=== PATIENT | female | born 1995 | race Caucasian/White ===

== ENCOUNTER → 2017-03-11 | Emergency (ER) | payer OTHER ==
[~2017-03-11] MED LIST: LEVOFLOXACIN 750 MG IVPB 150 ML IVPB ONE; ONDANSETRON 4 MG/2 ML VIAL ONE; SODIUM CHLORIDE 1,000 ML IV STA; morphine CARPU-JECT 4 MG/1 ML DISP.SYRIN IVPUSH ONE; morphine CARPU-JECT 4 MG/1 ML DISP.SYRIN ONE
[2017-03-11 01:24] VITALS: TEMP 98.5; BMI 25.2
--- NOTE | 2017-03-11 01:28 | PDOC ---
History of Present Illness - General Stated Complaint: ABD PAIN Time Seen by Provider: 03/11/17 00:59 - History of Present Illness Initial Comments: 03/11/17 01:21 Patient is a 21 year old female with no PMH who presents with right flank pain. The patient reports onset of sharp right sided back pain with radiation into her right flank and right abdomen earlier this evening. She states that the pain is 8/10 and sharp with intermittent spikes in severity and has been getting increasingly severe prompting her visit to the ED today. She reports some nausea and 3 episodes of vomiting, but denies any pain on urination or changes with bowel movements. She does endorse some increased urgency and frequency in urination. She states that her LMP was 1 month ago and denies any current vaginal bleeding or discharge. She states that she is sexually active with last intercourse many months ago. She denies any fevers, chills, chest pain, or SOB. Past History - Past Medical History Allergies/Adverse Reactions: Allergies Allergy/AdvReac Type Severity Reaction Status Date / Time No Known Allergies Allergy Verified 12/23/13 11:28 Home Medications: Ambulatory Orders No Home Medications 0 dose .ROUTE UTDICT 07/17/12 Levofloxacin [Levaquin] 750 mg PO DAILY #4 tab 03/11/17 Suicide Attempt (Hx): No - Psycho/Social/Smoking Cessation Hx Anxiety: No Suicidal Ideation: No Smoking Status: No Smoking History: Never smoked Number of Cigarettes Smoked Daily: 0 Review of Systems - Review of Systems Constitutional: No: Chills, Fever HEENTM: No: Recent change in vision Respiratory: No: Cough, Shortness of Breath Cardiac (ROS): No: Chest Pain, Lightheadedness, Palpitations ABD/GI: Yes: Nausea, Vomiting. No: Constipated, Diarrhea, Rectal Bleeding, Tarry Stools : Yes: Flank Pain, Urgency. No: Burning, Hematuria Musculoskeletal: Yes: Back Pain Integumentary: No: Rash Neurological: No: Headache, Numbness, Tingling, Weakness *Physical Exam - Physical Exam Comments: 03/11/17 01:32 General Appearance: Nourished, in Mild Distress due to pain HEENT: No Pharyngeal Erythema, Tonsillar Exudate, Tonsillar Erythema Respiratory/Chest: Lungs Clear, Normal Breath Sounds. No Crackles, Rales, Rhonchi, Wheezing Cardiovascular: Regular Rhythm, Regular Rate. No Murmur, Gallop/S3, Gallop/S4 Gastrointestinal/Abdominal: Normal Bowel Sounds, Soft, Tenderness in right flank and back with deep palpation of the URQ. No Guarding, Rebound Musculoskeletal: Exquisite right CVA tenderness. No left CVA tenderness Extremity: Normal Capillary Refill Integumentary: Normal Color, Dry, Warm Neurologic: Fully Oriented, Alert, Normal Mood/Affect, Normal Response ED Treatment Course - LABORATORY CBC & Chemistry Diagram: 03/11/17 01:55 03/11/17 01:55 Medical Decision Making - Medical Decision Making 03/11/17 01:37 Patient is a 21 year old female with no PMH who presents with right sided back and flank pain. Differential includes but is not limit to: Pyelonephritis, Nephrolethiasis, UTI, Cholecystitis, Ectopic . We will obtain a cbc, cmp, lipase to evaluate for any metabolic abnormalities. We will obtain a UA and Urine preg to evaluate for pyelonephritis, and nephrolethiasis as well as any related causes of her symptoms. If urine preg is negative, we will consider a CT abdomen to evaluate for pathology. Given her presentation and physical exam, her symptoms are most consistent with nephrolethiasis or pyelonephritis. We will treat with fluids and pain management while awaiting lab results. 03/11/17 04:04 CBC demonstrates an elevated WBC to 14.1 and UA demonstrates 3+ leuk esterase with 400+ WBC concerning for a UTI. Given her lab results, history, and physical examination, her symptoms are likely due to pyelonephritis. We will obtain a CT abdomen to evaluate for any nephrolethiasis or other abdominal pathology. We will also give her a dose of IV levofloxacin here in the ED. 03/11/17 05:20 CT abdomen demonstrates findings concerning for pyelonephritis without stones or hydronephrosis as preliminarily read by the investigation specialist radiologist. The patient 's symptoms are likely due to pyelonephritis. The patient has tolerated a PO challenge here in the ED. We discussed the results with the patient and feel comfortable discharging the patient home. The patient is agreeable to the plan. *DC/Admit/Observation/Transfer Diagnosis at time of Disposition: Pyelonephritis - Discharge Dispostion Disposition: HOME Condition at time of disposition: Improved Admit: No - Prescriptions Prescriptions: Levofloxacin [Levaquin] 750 mg PO DAILY #4 tab - Referrals Referrals: Rima Keating MD [Primary Care Provider] - - Patient Instructions Printed Discharge Instructions: DI for Kidney Infection Additional Instructions: Please return to the ER if you experience concerning or worsening symptoms including fevers or chills. We have prescribed Levaquin to treat your Kidney infection. You have received your first dose here in the ER. Please take once a day for the next 4 days to complete your treatment. Please follow up with your primary care provider to discuss your ER visit. - Attestations Physician Attestion: 03/11/17 05:12 I, Dr. Oneal Fajardo, attest that this document has been prepared under my direction and personally reviewed by me in its entirety. I further attest, that it accurately reflects all work, treatment, procedures and medical decision -making performed by me.
[2017-03-11 02:05] LABS: BASOPHIL 0.5 % (0-2.0); EOSINOPHIL 0.2 % (0-4.5); MCH 27.2 pg (25.7-33.7); MCHC 32.3 g/dl (32.0-36.0); MEAN CELL VOLUME 84.2 fl (80-96); MEAN PLT VOLUME 7.7 fl (7.5-11.1); NEUTROPHILS 82.1 % (42.8-82.8); PLATELET COUNT 325 K/MM3 (134-434); RDW 14.5 % (11.6-15.6); WHITE BLOOD COUNT 14.3 K/mm3 (4.0-10.0)
--- NOTE | 2017-03-11 02:08 | PDOC ---
Attending Attestation - Resident Resident Name: Oneal Fajardo - ED Attending Attestation I have performed the following: I have examined & evaluated the patient, The case was reviewed & discussed with the resident, I agree w/resident's findings & plan, Exceptions are as noted - HPI HPI: 03/11/17 02:06 Agree with the resident's HPI as documented in the electronic medical record. - Physicial Exam PE: 03/11/17 02:07 Agree with the resident's physical examination as documented in the electronic medical record. - Medical Decision Making 03/11/17 02:07 21-year-old female with no significant past medical history presents to the emergency Department with complaints of right upper quadrant and right flank pain with nausea and vomiting. Differential diagnosis includes but is not limited to: Cholelithiasis, cholecystitis, UTI, pyelonephritis, pancreatitis, electrolyte abnormality, dehydration, toxic/metabolic derangement. Plan: 1. Labs 2. Urine analysis 3. Urine 4. IV fluids for hydration 5. Pain management 6. Observe and reevaluate
[2017-03-11 02:39] LABS: URINE APPEARANCE CLOUDY; URINE BILIRUBIN NEGATIVE (NEGATIVE); URINE BLOOD 2+ (NEGATIVE); URINE COLOR YELLOW; URINE GLUCOSE (UA) NEGATIVE (NEGATIVE); URINE KETONE NEGATIVE (NEGATIVE); URINE NITRITE NEGATIVE (NEGATIVE); URINE UROBILINOGEN NEGATIVE mg/dL (0.2-1.0)
[2017-03-11 02:41] LABS: URINE LEUK ESTERASE 3+ (NEGATIVE); URINE PROTEIN 2+ (NEGATIVE)
[2017-03-11 02:47] LABS: ALBUMIN 3.8 g/dl (3.4-5.0); ALK PHOS 63 U/L (45-117); ANION GAP 10 (8-16); BILIRUBIN,TOTAL 0.3 mg/dL (0.2-1.0); CALCIUM 9.1 mg/dL (8.5-10.1); CO2 26 mmol/L (21-32); CREATININE 0.6 mg/dL (0.55-1.02); GLUCOSE,RANDOM 90 mg/dL (74-106); SGOT/AST 15 U/L (15-37); SGPT/ALT 19 U/L (12-78); TOT PROT 6.8 g/dl (6.4-8.2)
[2017-03-11 02:57] LABS: URINE BACTERIA RARE /hpf (NONE SEEN); URINE MUCUS FEW; URINE RBC 46 /hpf (0-3); URINE WBC 492 /hpf (3-5)
[2017-03-11 05:32] VITALS: BP 131/68; PULSE 89
== END | disposition home or self-care (01) ==
LOC: JER 00:48
PROC: 3E03329 Introduction of Other Anti-infective into Peripheral Vein, Percutaneous Approach (ICD-10-PCS; principal; 2017-03-11)
PROC: 3E033GC Introduction of Other Therapeutic Substance into Peripheral Vein, Percutaneous Approach (ICD-10-PCS; 2017-03-11)
PROC: 3E033NZ Introduction of Analgesics, Hypnotics, Sedatives into Peripheral Vein, Percutaneous Approach (ICD-10-PCS; 2017-03-11)
DX: N12 Tubulo-interstitial nephritis, not specified as acute or chronic (principal)
CPT/HCPCS: 36415; 74176-TC; 80053; 81003; 81015; 83690; 84703; 85025; 96365; 96375; 99282-25

== ENCOUNTER 2020-03-21 13:31 | Emergency (ER) | payer OTHER ==
[2020-03-21] MEDS ORDERED: ACETAMINOPHEN 1000 MG/100 ML VIAL (NON FORMULARY) IVPB ONE (13:39)
[2020-03-21] MEDS ORDERED: METOCLOPRAMIDE HCL INJECTION 10 MG/2 ML VIAL IVPUSH ONE (13:39)
--- NOTE | 2020-03-21 13:39 | PDOC ---
Rapid Medical Evaluation Time Seen by Provider: 03/21/20 13:37 Medical Evaluation: Allergies Allergy/AdvReac Type Severity Reaction Status Date / Time No Known Allergies Allergy Verified 12/23/13 11:28 03/21/20 13:37 I have performed a brief in-person evaluation of this patient. CC: headache since awaking. +foodstuff vomitus earlier today; h/o vertigo PE: Neuro grossly normal. Gait steady. Nasal congestion. Room spinning dizzy with leaning forward. Orders: urine, NS, reglan, benadryl, toradol Patient will proceed to ED for further evaluation. Discharge Disposition - Diagnosis Headache - Referrals - Patient Instructions - Post Discharge Activity
[2020-03-21] MEDS ORDERED: SODIUM CHLORIDE 1,000 ML IV STA (13:40)
[2020-03-21 13:41] VITALS: TEMP 98.8; BMI 25.4
[2020-03-21] MEDS ORDERED: METOCLOPRAMIDE HCL INJECTION 10 MG/2 ML VIAL ONE (14:46)
[2020-03-21] MEDS ORDERED: ACETAMINOPHEN INJECTION 100 ML IVPB ONE (14:47)
[2020-03-21] MEDS ORDERED: diazePAM CARPU-JECT 10 MG/2 ML DISP.SYRIN IVPUSH ONE (15:48)
[2020-03-21] MEDS ORDERED: diazePAM CARPU-JECT 10 MG/2 ML DISP.SYRIN ONE (15:51)
[2020-03-21 15:55] LABS: BASO % 0.4 % (0-2.0); EOS % 1.1 % (0-4.5); HEMATOCRIT 41.6 % (32.4-45.2); HEMOGLOBIN 13.5 GM/dL (10.7-15.3); LYMPH % 17.3 % (8-40); MCH 27.9 pg (25.7-33.7); MCHC 32.5 g/dl (32.0-36.0); MEAN CELL VOLUME 85.8 fl (80-96); MEAN PLT VOLUME 7.8 fl (7.5-11.1); NEUT % 75.2 % (42.8-82.8); PLATELET COUNT 344 K/MM3 (134-434); RBC 4.85 M/mm3 (3.60-5.2); RDW 14.7 % (11.6-15.6)
[2020-03-21 16:26] LABS: ALBUMIN 4.5 g/dl (3.4-5.0); BILIRUBIN,TOTAL 0.6 mg/dL (0.2-1); BLOOD UREA NITROGEN 7.6 mg/dL (7-18); CALCIUM 9.7 mg/dL (8.5-10.1); CREATININE 0.7 mg/dL (0.55-1.3); POTASSIUM 4.3 mmol/L (3.5-5.1); TOT PROT 7.9 g/dl (6.4-8.2)
--- NOTE | 2020-03-21 16:45 | PDOC ---
History of Present Illness - General Chief Complaint: Headache Stated Complaint: VERTIGO Time Seen by Provider: 03/21/20 13:37 - History of Present Illness Initial Comments: 03/21/20 16:41 24-year-old female with a past medical history of anxiety presents for evaluation of intermittent vomiting and one episode of diarrhea over the last 3 days without systemic symptoms. Past History - Medical History Allergies/Adverse Reactions: Allergies Allergy/AdvReac Type Severity Reaction Status Date / Time No Known Allergies Allergy Verified 12/23/13 11:28 Home Medications: Ambulatory Orders No Home Medications 0 dose .ROUTE UTDICT 07/17/12 levoFLOXacin [Levaquin] 750 mg PO DAILY #4 tab 03/11/17 Anemia: No Asthma: No Cancer: No Cardiac Disorders: No CVA: No COPD: No DVT: No Dementia: No Diabetes: No Dialysis: No GI Disorders: No Disorders: No HTN: No Hypercholesterolemia: No Kidney Stones: No Liver Disease: No Psychiatric Problems: No Seizures: No Thyroid Disease: No Lung CA: No - Reproductive History Is Patient Now?: No - Immunization History Immunization Up to Date: No - Psycho-Social/Smoking History Smoking Status: No Smoking History: Current some day smoker Have you smoked in the past 12 months: No Number of Cigarettes Smoked Daily: 0 Information on smoking cessation initiated: No - Substance Abuse Hx (Audit-C & DAST Scrn) How often the patient has a drink containing alcohol: Never Score: In Men: 4 or > Positive; In Women: 3 or > Positive: 0 Screen Result (Pos requires Nsg. Audit-10AR): Negative In the last yr the pt used illegal drug/Rx for NonMed reason: No Score: Yes response is considered Positive: 0 Screen Result (Positive result requires Nsg. DAST-10): Negative Review of Systems - Review of Systems Constitutional: No: Chills, Fever, Malaise, Night Sweats ABD/GI: Yes: Diarrhea, Nausea, Vomiting. No: Constipated Neurological: Yes: Headache *Physical Exam - Vital Signs Last Vital Signs Temp Pulse Resp BP Pulse Ox 98.8 F 82 18 128/68 66 L 03/21/20 13:37 03/21/20 13:37 03/21/20 13:37 03/21/20 13:37 03/21/20 13:37 - Physical Exam 03/21/20 16:42 GENERAL: The patient is awake, alert, and fully oriented, in no acute distress. HEAD: Normal with no signs of trauma. EYES: sclera anicteric, conjunctiva clear. ENT: Ears normal tympanic membranes normal oropharynx clear uvula midline NECK: Normal range of motion LUNGS: Breath sounds equal, clear to auscultation bilaterally. No wheezes, and no crackles. HEART: S1 and S2 without murmur, rub or gallop. ABDOMEN: Soft, nontender, normoactive bowel sounds. No guarding, no rebound. No masses. EXTREMITIES: Normal range of motion, no edema. No clubbing or cyanosis. No cords, erythema, or tenderness. NEUROLOGICAL: Cranial nerves II through XII grossly intact. PSYCH: Normal mood, normal affect. SKIN: Warm, Dry, normal turgor, no rashes or lesions noted. ED Treatment Course - LABORATORY CBC & Chemistry Diagram: 03/21/20 15:00 03/21/20 15:00 - ADDITIONAL ORDERS Additional order review: Laboratory Results 03/21/20 03/21/20 15:00 15:00 Sodium 141 Potassium 4.3 Chloride 104 Carbon Dioxide 24 Anion Gap 13 BUN 7.6 Creatinine 0.7 Est GFR (CKD-EPI)AfAm 142.54 Est GFR (CKD-EPI)NonAf 122.98 Random Glucose 73 L Calcium 9.7 Total Bilirubin 0.6 AST 22 ALT 22 Alkaline Phosphatase 93 Total Protein 7.9 Albumin 4.5 Lipase 98 Serum , Qual Negative 03/21/20 15:00 RBC 4.85 MCV 85.8 MCHC 32.5 RDW 14.7 MPV 7.8 Neutrophils % 75.2 Lymphocytes % 17.3 D Monocytes % 6.0 Eosinophils % 1.1 D Basophils % 0.4 - Medications Given in the ED: ED Medications Discontinued Medications Generic Name Dose Route Start Last Admin Trade Name Freq PRN Reason Stop Dose Admin Acetaminophen 1,000 mg 03/21/20 13:39 03/21/20 15:28 Ofirmev Injection - IVPB 03/21/20 13:40 1,000 mg ONCE ONE Administration Diazepam 2.5 mg 03/21/20 15:48 03/21/20 15:58 Valium Injection - IVPUSH 03/21/20 15:49 2.5 mg ONCE ONE Administration Diphenhydramine HCl 50 mg 03/21/20 13:39 03/21/20 15:28 Benadryl Injection - IVPUSH 03/21/20 13:40 50 mg ONCE ONE Administration Sodium Chloride 1,000 mls @ 1,000 mls/hr 03/21/20 13:40 03/21/20 15:28 Normal Saline - IV 03/21/20 14:39 1,000 mls/hr ASDIR STA Administration Metoclopramide HCl 10 mg 03/21/20 13:39 03/21/20 15:28 Reglan Injection - IVPUSH 03/21/20 13:40 10 mg ONCE ONE Administration Medical Decision Making - Medical Decision Making 03/21/20 16:42 Patient was agitated after receiving some of the Reglan. Benadryl was given as well as 2.5 of Valium. Her symptoms resolved blood work was reviewed patient is feeling better she may be safely discharged to follow-up with her primary care physician. I have reviewed the pathophysiology with the patient. They are in agreement with the treatment plan all questions were answered to their satisfaction. Understanding for follow-up without fail was also conveyed to the patient. Again they are in agreement. Discharge - Discharge Information Problems reviewed: Yes Clinical Impression/Diagnosis: Headache Condition: Improved Disposition: HOME - Admission No - Follow up/Referral Referrals: Rima Keating MD [Primary Care Provider] - - Patient Discharge Instructions Additional Instructions: Maintain hydration with plenty of water and clear fluids. Return to the emergency room for worsening symptoms. Without fail follow-up with your primary care physician in 1 to 2 days for further evaluation and treatment options and return to the emergency room should symptoms worsen. - Post Discharge Activity
[2020-03-21 16:57] VITALS: BP 103/45; PULSE 74
== END 2020-03-21 16:57 | disposition home or self-care (01) ==
LOC: JER 13:31
PROC: 3E0333Z Introduction of Anti-inflammatory into Peripheral Vein, Percutaneous Approach (ICD-10-PCS; principal; 2020-03-21)
PROC: 3E033GC Introduction of Other Therapeutic Substance into Peripheral Vein, Percutaneous Approach (ICD-10-PCS; 2020-03-21)
PROC: 3E0337Z Introduction of Electrolytic and Water Balance Substance into Peripheral Vein, Percutaneous Approach (ICD-10-PCS; 2020-03-21)
DX: R51 Headache (principal)
CPT/HCPCS: 36415; 80053; 83690; 84703; 85025; 99284-25; J0131

== ENCOUNTER 2023-04-03 12:48 | Emergency (ER) | payer OTHER ==
[2023-04-03 13:09] VITALS: BP 126/83; PULSE 86; RESP 18; TEMP 98.6; BMI 32.9
== END 2023-04-03 16:45 | disposition home or self-care (01) ==
LOC: JER 12:48
DX: R55 Syncope and collapse (principal); R11.0 Nausea; R41.9 Unspecified symptoms and signs involving cognitive functions and awareness; R51.9 Headache, unspecified; R42 Dizziness and giddiness
CPT/HCPCS: 82962; 84703; 93005; 93010; 99284-25

== ENCOUNTER 2023-09-17 08:32 | Day surgery (SDC) | payer OTHER ==
[2023-09-17] MEDS ORDERED: ACETAMINOPHEN INJECTION 100 ML IVPB ONE (09:36)
[2023-09-17] MEDS ORDERED: FAMOTIDINE 20 MG/50 ML IVPB 20 MG/50 ML MG IVPB ONE (09:36)
[2023-09-17] MEDS ORDERED: ONDANSETRON 4 MG/2 ML VIAL ONE ×3 (09:37→16:21)
[2023-09-17] MEDS: ACETAMINOPHEN 1000 MG/100 ML BAG IVPB ONE (09:57)
[2023-09-17] MEDS: LACTATED RINGERS SOLUTION 1,000 ML/1,000 ML INFUS.BAG IV STA ×2 (09:58→11:30)
[2023-09-17] MEDS: FAMOTIDINE 20 MG/50 ML IVPB 20 MG/50 ML MG IVPB ONE (09:58)
[2023-09-17] MEDS: ONDANSETRON 4 MG/2 ML VIAL IVPUSH ONE ×2 (09:58→11:31)
[2023-09-17 10:06] LABS: BASO % 0.3 % (0-2.0); EOS % 0.3 % (0-4.5); HEMATOCRIT 38.9 % (32.4-45.2); LYMPH % 12.5 % (8-40); MCH 27.8 pg (25.7-33.7); MCHC 33.4 g/dl (32.0-36.0); MEAN CELL VOLUME 83.3 fl (80-96); MEAN PLT VOLUME 7.3 fl (7.5-11.1); NEUT % 82.9 % (42.8-82.8); PLATELET COUNT 333 10^3/uL (134-434); RBC 4.67 M/mm3 (3.60-5.2); WHITE BLOOD COUNT 13.9 K/mm3 (4.0-10.0)
[2023-09-17 10:13] LABS: INR 1.07 (0.83-1.09); PROTHROMBIN TIME (PATIENT) 12.4 SEC (9.7-13.0)
[2023-09-17 10:25] LABS: POTASSIUM 4.4 mmol/L (3.5-5.1)
[2023-09-17 10:27] LABS: CALCIUM 9.8 mg/dL (8.5-10.1)
[2023-09-17 10:28] LABS: MAGNESIUM 1.8 mg/dL (1.8-2.4)
[2023-09-17 10:31] LABS: CREATININE 0.6 mg/dL (0.55-1.3)
[2023-09-17 10:32] LABS: BILIRUBIN,TOTAL 0.3 mg/dL (0.2-1); TOT PROT 7.1 g/dl (6.4-8.2)
[2023-09-17] MEDS ORDERED: morphine SULFATE 4 MG/ML VIAL ONE (11:21)
[2023-09-17] MEDS: morphine CARPU-JECT 4 MG/1 ML DISP.SYRIN IVPUSH ONE (11:30)
[2023-09-17 11:44] LABS: URINE APPEARANCE CLEAR; URINE BILIRUBIN NEGATIVE (NEGATIVE); URINE COLOR YELLOW; URINE GLUCOSE (UA) NEGATIVE (NEGATIVE); URINE KETONE NEGATIVE (NEGATIVE); URINE LEUK ESTERASE NEGATIVE (NEGATIVE); URINE NITRITE NEGATIVE (NEGATIVE); URINE PROTEIN NEGATIVE (NEGATIVE); URINE UROBILINOGEN 0.2 mg/dL (0.2-1.0)
[2023-09-17] MEDS ORDERED: PIPERACILLIN/TAZOB 3.375 GM 3.375 GM/50 ML BAG IVPB ONE (13:15)
[2023-09-17] MEDS ORDERED: METOCLOPRAMIDE HCL INJECTION 10 MG/2 ML VIAL ONE (13:54)
[2023-09-17] MEDS: METOCLOPRAMIDE HCL INJECTION 10 MG/2 ML VIAL IVPUSH ONE (14:05)
[2023-09-17] MEDS: PIPERACILLIN/TAZOB 3.375 GM 3.375 GM in DEXTROSE 5%-WATER - 50 ML IVPB ONE (14:05)
[2023-09-17] MEDS: DEXTROSE 5%-LACTATED RINGERS 1,000 ML IV SCH (14:06)
[2023-09-17] MEDS ORDERED: ACETAMINOPHEN 1000 MG/100 ML BAG IVPB PRN (14:56)
[2023-09-17] MEDS ORDERED: ONDANSETRON 4 MG/2 ML VIAL IVPUSH PRN ×2 (14:56→15:41)
[2023-09-17] MEDS ORDERED: BUPIVACAINE HCL/PF 0.25% (2.5MG/ML) 10 ML VIAL ONE (15:09)
[2023-09-17] MEDS ORDERED: PROMETHAZINE HCL 25 MG/1 ML VIAL IVPB PRN ×2 (15:41→17:56)
[2023-09-17] MEDS ORDERED: MIDAZOLAM HCL 2 MG/2 ML SINGLE DOSE VIAL ONE (15:45)
[2023-09-17] MEDS ORDERED: PROPOFOL 20 ML ONE ×2 (15:45→17:03)
[2023-09-17] MEDS ORDERED: LACTATED RINGERS SOLUTION 1,000 ML IV SCH (15:45)
[2023-09-17] MEDS ORDERED: ROCURONIUM BROMIDE 50 MG/5 ML SYRINGE ONE (15:45)
[2023-09-17] MEDS ORDERED: SODIUM CHLORIDE 0.9% P/F 10 ML VIAL IJ ONE (15:51)
[2023-09-17] MEDS ORDERED: LIDOCAINE HCL/PF 2% SDV 5ML VIAL ONE (15:51)
[2023-09-17] MEDS ORDERED: ceFAZolin SODIUM 1 GM VIAL ONE (15:51)
[2023-09-17] MEDS ORDERED: HEPARIN NA (PORCINE) 5,000 UNITS/ML 1ML VIAL ONE (16:10)
[2023-09-17] MEDS ORDERED: cefOXitin SODIUM 2 GM VIAL (RESTRICTED TO ID) IVPB ONE (16:10)
[2023-09-17] MEDS: ceFAZolin SODIUM 1 GM VIAL IVPB ONE (16:14)
[2023-09-17] MEDS ORDERED: DEXAMETHASONE SOD PHOSPHATE 4 MG/1 ML VIAL ONE (16:21)
[2023-09-17] MEDS: BUPIVACAINE HCL/PF 0.25% (2.5MG/ML) 10 ML VIAL IJ ONE ×2 (16:27)
[2023-09-17] MEDS ORDERED: SUGAMMADEX SODIUM 200 MG/2 ML VIAL ONE (16:46)
[2023-09-17] MEDS ORDERED: KETOROLAC TROMETHAMINE 30 MG/1 ML VIAL ONE (17:26)
[2023-09-17] MEDS ORDERED: oxyCODONE HCL 5 MG TABLET PO PRN (17:56)
[2023-09-17] MEDS ORDERED: AMPICILLIN NA/SULBACTAM NA 3 GM in DEXTROSE 5%-WATER 100 ML IVPB SCH (18:00)
[2023-09-17] MEDS: LACTATED RINGERS SOLUTION 1,000 ML IV SCH (20:10)
[2023-09-17 21:00] VITALS: BMI 33.3
[2023-09-17] MEDS: QUEtiapine FUMARATE 25 MG TABLET PO SCH (22:12)
[2023-09-17] MEDS: ACETAMINOPHEN 1000 MG/100 ML BAG IVPB SCH (23:44)
[2023-09-18 10:00] LABS: HEMATOCRIT 35.4 % (32.4-45.2); HEMOGLOBIN 11.7 GM/dL (10.7-15.3); MCH 27.6 pg (25.7-33.7); MEAN CELL VOLUME 83.7 fl (80-96); MEAN PLT VOLUME 7.6 fl (7.5-11.1); PLATELET COUNT 364 10^3/uL (134-434); RBC 4.23 M/mm3 (3.60-5.2); RDW 16.3 % (11.6-15.6); WHITE BLOOD COUNT 12.3 K/mm3 (4.0-10.0)
[2023-09-18 10:23] LABS: POTASSIUM 4.1 mmol/L (3.5-5.1)
[2023-09-18 10:29] LABS: BLOOD UREA NITROGEN 7.8 mg/dL (7-18)
[2023-09-18 10:32] LABS: CREATININE 0.6 mg/dL (0.55-1.3)
[2023-09-18 15:39] VITALS: BP 121/51; PULSE 88; RESP 18; TEMP 98.5
[2023-09-18] MEDS: oxyCODONE HCL 5 MG TABLET PO PRN (16:19)
== END 2023-09-18 17:20 | disposition home or self-care (01) ==
LOC: JER 08:32 → JERBED 14:18 → UNDOADMIN 14:18 → JASUSAT 16:49 → SUATTDRO 16:49 → J6S 18:55 → JASUSAT 09-18 17:20
PROVIDERS: ATTEND Internal Medicine
PROC: 0DTJ4ZZ Resection of Appendix, Percutaneous Endoscopic Approach (ICD-10-PCS; 2023-09-17)
PROC: 0WQF3ZZ Repair Abdominal Wall, Percutaneous Approach (ICD-10-PCS; principal; 2023-09-17 16:30)
DX: K35.80 Unspecified acute appendicitis (principal); K42.9 Umbilical hernia without obstruction or gangrene
CPT/HCPCS: 36415; 74177-TC; 80048; 80053; 81003; 83690; 83735; 84703; 85025; 85027; 85610; 86850; 86900; 86901; 88304-TC; 94010; 94760; 99285-25; J0131; J1644; Q9967

== ENCOUNTER 2024-03-11 16:52 | Emergency (ER) | payer OTHER ==
[2024-03-11 17:11] VITALS: BP 104/71; PULSE 80; RESP 20; TEMP 98.4; BMI 32.0
== END 2024-03-11 19:13 | disposition home or self-care (01) ==
LOC: JER 16:52
DX: R55 Syncope and collapse (principal); R61 Generalized hyperhidrosis
CPT/HCPCS: 82962; 84703; 93005; 93010; 99284-25